=== PATIENT | male | born 2005 | race Caucasian/White ===

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

== ENCOUNTER 2023-01-08 00:17 | Emergency (ER) | payer BC | END 2023-01-08 01:38 | disposition home or self-care (01) | LOC: MADERS 00:17 | DX: R11.2 Nausea with vomiting, unspecified (principal); F17.290 Nicotine dependence, other tobacco product, uncomplicated | CPT/HCPCS: 99283 ==